=== PATIENT | female | born 1945 | race Caucasian/White ===

== ENCOUNTER 2019-10-17 01:24 | Outpatient (CLI) | payer MEDICARE, BC, SELFPAY ==
--- NOTE | 2019-10-17 13:36 | DI.RAD_ITS ---
EXAM: XR HIP PELVIS ADULT BL INDICATION: LOW BACK AND BUTTOCK PAIN,M54.5. COMPARISON: No exams were available for comparison TECHNIQUE: 2D digital imaging was performed. FINDINGS: The hip joint spaces are well maintained. There is minimal acetabular spurring. There are mild dege nerative changes of the SI joints inferiorly. IMPRESSION: Mild degenerative changes.
--- NOTE | 2019-10-17 13:39 | DI.RAD_ITS ---
EXAM: XR LUMBAR SPINE COMPLETE INDICATION: LOW BACK AND BUTTOCK PAIN,M54.5. COMPARISON: No exams were available for comparison TECHNIQUE: 2D digital imaging was performed. FINDINGS: There is a large quantity of stool, which somewhat obscures the bony detail. There is no evidence of compression fractures. There is mild narrowing of the L2-3 and L4-5 disc spaces. There are facet de generative changes greatest at L4-5. There is mild spondylolisthesis at this level secondary to face t joint degenerative changes. There is no spondylolysis. There are degenerative changes of the infe rior SI joints. IMPRESSION: Degenerative changes greatest at L4-5.
== END 2019-10-17 01:44 ==
PROVIDERS: PCP Family Medicine; Visit Provider Nurse Practitioner Family
DX: M54.5 Low back pain (principal); M53.3 Sacrococcygeal disorders, not elsewhere classified; M79.18 Myalgia, other site; M51.36 Other intervertebral disc degeneration, lumbar region; M43.16 Spondylolisthesis, lumbar region
CPT/HCPCS: 73521; 72110

== ENCOUNTER 2020-01-06 02:00 | Outpatient (CLI) | payer MEDICARE, BC, SELFPAY ==
[2020-01-06 13:51] LABS: Absolute Basophil Count 0.03 k/cumm (0.0-0.2); Absolute Eosinophil Count 0.23 k/cumm (0.0-0.7); Absolute Lymphocyte Count 1.22 k/cumm (1.2-3.4); Absolute Monocyte Count 0.39 k/cumm (0.11-0.7); Absolute Neutrophil Count 3.09 k/cumm (1.2-6.7); Basophils % 0.6; Eosinophils % 4.6; HCT 40.7 % (36.0-46.0); HGB 13.7 g/dL (12.0-15.5); Lymphocytes % 24.6; Mean Corp. HGB Concentration 33.7 g/dL (32.0-36.0); Mean Corpuscular Hemoglobin 29.5 pg (27.0-33.0); Mean Corpuscular Volume 87.7 fL (80-95); Monocytes % 7.9; Neutrophils % 62.3; Platelet Count 160 x1000/uL (130-400); RBC 4.64 m/cumm (4.00-5.20); White Blood Cell Count 4.96 k/cumm (4.4-10.8)
[2020-01-06 14:41] LABS: Anion Gap 9.2 mmol/L (3-11); BUN 14 mg/dL (7-18); CO2 26.8 mmol/L (21.0-32.0); Calcium 9.1 mg/dL (8.5-10.1); Chloride 101 mmol/L (98-107); Glucose 103 mg/dL (74-106); Potassium 3.9 mmol/L (3.5-5.1); Sodium 137 mmol/L (136-145)
[2020-01-06 15:57] LABS: Calculated LDL 125 mg/dL (<100); Cholesterol 199 mg/dL (<200); HDL Cholesterol 60 mg/dL (40-60); Triglyceride 70 mg/dL (<150)
== END 2020-01-06 02:20 ==
PROVIDERS: PCP Family Medicine; Visit Provider Family Medicine
DX: E78.5 Hyperlipidemia, unspecified (principal); R03.0 Elevated blood-pressure reading, without diagnosis of hypertension; D64.9 Anemia, unspecified; R22.30 Localized swelling, mass and lump, unspecified upper limb
CPT/HCPCS: 36415; 80048; 80061; 85025

== ENCOUNTER 2020-04-04 01:50 | Outpatient (CLI) | payer MEDICARE, BC, SELFPAY ==
--- NOTE | 2020-04-04 06:45 | DI.US_ITS ---
EXAM: US AXILLA LT CLINICAL HISTORY: swelling in left armpit for months,M79.89,LUMP LT AXILLA,N63.32 TECHNIQUE: Ultrasound left axilla performed using standard protocol. COMPARISON: MG SCREENING KINJAL MAMMO W/CAD DIGI from 01/27/2012 FINDINGS: Two lymph nodes are identified in the axilla. The largest measures 1.5 x 0.7 x 0.9 cm. The fatty hi lum is preserved.. No suspicious mass or lipoma is identified. IMPRESSION: Normal appearing axillary lymph nodes. DATA REPOSITORY:
== END 2020-04-04 02:10 ==
PROVIDERS: PCP Family Medicine; Visit Provider Family Medicine
DX: M63.8 Disorders of muscle in diseases classified elsewhere (principal); M79.89 Other specified soft tissue disorders; R22.32 Localized swelling, mass and lump, left upper limb
CPT/HCPCS: 76642

== ENCOUNTER 2020-09-03 03:33 | Outpatient (CLI) | payer MEDICARE, BC, SELFPAY ==
[2020-09-04 19:21] LABS: COVID-19 RT-PCR UVMMC Result Negative (Negative)
== END 2020-09-03 03:53 ==
PROVIDERS: PCP Family Medicine; Visit Provider Internal Medicine Cardiovascular Disease
DX: Z11.59 Encounter for screening for other viral diseases (principal); Z01.810 Encounter for preprocedural cardiovascular examination
CPT/HCPCS: U0003

== ENCOUNTER 2020-09-06 01:27 | Outpatient (CLI) | payer MEDICARE, BC, SELFPAY ==
--- NOTE | 2020-09-06 06:30 | DI.NM_ITS ---
APPROVED REPORT Exam: Exercise Treadmill Patient Location: Out-Patient Room/Bed: Stress Nurse: Gauri Roman RN, Melissa RN BMI: 20.40 Baseline Rhythm: Sinus Rhythm Indications: chest pain, QUIÑONES Medical History Medical History: gerd, borderline HTN, vertigo Cardiac Medications: None Allergies: NKDA Cardiac Risk Factors: Family hx. Previous Cardiac Procedures: None. Pretest Chest Pain Characteristics: None. Exercise History: Physically active Physical Disabilities: None. Lung Sounds: Clear to auscultation Heart Sounds: Regular Stress Test Details Test: Exercise stress testing was performed using a Logan protocol. Nuclear Acquisition: Rest Tc-99m/Stress Tc-99m 1 day Rest Isotope: Tc-99m Sestamibi. Dose: 11 Date: 09/06/20 Injection Time: 0900 Stress Isotope: Tc-99m Sestamibi. Dose: 36 Date: 09/06/20 Injection Time: 1225 HR Resting HR Supine: 63 bpm Max Heart Rate (APMHR): 143 bpm Resting HR Standin bpm Target HR (85% APMHR): 121 bpm Max HR Achieved: 150 bpm % of APMHR: 104 Recovery HR: 85 bpm HR response to stress: Normal HR response to stress BP Resting BP Supine: 154/78 mmHg Resting BP Standin/80 mmHg Max BP: 166/68 mmHg Recovery BP: 144/80 mmHg BP response to stress: Normal blood pressure response to stress. Comment: orthostatic hypotension ECG Resting ECG: Sinus Rhythm Ectopy: None. Stress ECG: Sinus Tachycardia ST Change: No significant ST segments noted. Arrhythmia: None. Recovery ECG: Sinus Rhythm Recovery ST Change: No significant ST segments noted. Recovery Arrhythmia: Rare PAC Clinical Reason for Termination: Fatigue Stress Symptoms: None. Exercise duration: 7 min45 sec Highest Stage Reached: Stage 3: 3.4 mph at 14% grade. Exercise capacity: 9.75 METs Stress ECG Conclusion 1. The resting electrocardiogram was normal 2. Patient exercised on the Logan protocol and achieved a workload of 9.75 METS 3. Normal hemodynamic response to exercise. There were no exertional symptoms to suggest angina. Th e patient achieved 100% of predicted heart rate for age 4. Electrocardiographically there was no evidence of myocardial ischemia 5. Rare atrial premature beats were seen 6. Logan treadmill score is 7, low risk Stress Test Summary STAGE Time (mins) Speed (mph) Grade (%) HR BP SYMPTOMS METS Supine 63 154/78 Standing 77 144/80 1 3 1.7 10 110 156/72 4.6 2 6 2.5 12 135 160/70 7 1 min recovery 124 166/68 3 min recovery 94 158/72 6 min recovery 85 144/80 MPI Conclusion Normal myocardial l perfusion without evidence of ischemia or prior infarction EF 74%
== END 2020-09-06 01:47 ==
PROVIDERS: PCP Family Medicine; Visit Provider Family Medicine
DX: R07.9 Chest pain, unspecified (principal); R06.09 Other forms of dyspnea; Z82.49 Family history of ischemic heart disease and other diseases of the circulatory system
CPT/HCPCS: 78452; 93016; 93018; 93017

== ENCOUNTER 2020-11-19 01:58 | Outpatient (CLI) | payer MEDICARE, BC, SELFPAY ==
[2020-11-20 13:46] LABS: COVID-19 RT-PCR UVMMC Result Negative (Negative)
== END 2020-11-19 01:59 | disposition home or self-care (01) ==
LOC: LBO 01:58
PROVIDERS: PCP Family Medicine; Visit Provider Family Medicine
DX: Z20.822 Contact with and (suspected) exposure to COVID-19 (principal)
CPT/HCPCS: U0003; U0005

== ENCOUNTER → 2022-04-09 01:49 | Outpatient (CLI) | payer MEDICARE, BC, SELFPAY ==
--- NOTE | 2022-04-09 08:00 | DI.RAD_ITS ---
Exam(s) XR ACROMIO CLAVICULAR JOINTS EXAM: XR ACROMIO CLAVICULAR JOINTS INDICATION: ac joint pain deformity,m25.519. COMPARISON: CR CHEST 2 VIEWS PA,LAT from 04/28/2014 TECHNIQUE: 2D digital imaging was performed. Two AP views were performed including both clavicles, without and with weights. FINDINGS: There is no evidence of widening of the AC joints. There are no acute fractures. There is superior bony prominence of distal right clavicle, similar to the previous exam chest x-ray. There is a small subchondral cyst, likely degenerative. There is minimal spurring. Subchondral cysts are seen in th e right humeral head a small calcification above the left humeral head. IMPRESSION: Small bony projection at the distal right clavicle. No widening of the AC joint DATA REPOSITORY: RADIATION DOSE DELIVERED:
== END ==
PROVIDERS: PCP Family Medicine; Visit Provider Nurse Practitioner
DX: M85.611 Other cyst of bone, right shoulder (principal)
CPT/HCPCS: 73050

== ENCOUNTER → 2022-10-06 13:27 | Outpatient (BNVA) | payer MEDICARE, BC, SELFPAY | PROVIDERS: PCP Family Medicine; Referring Provider Family Medicine; Visit Provider Student in an Organized Health Care Education/Training Program | DX: M65.311 Trigger thumb, right thumb (principal); G56.01 Carpal tunnel syndrome, right upper limb | CPT/HCPCS: 99203 ==

== ENCOUNTER 2022-10-28 12:37 | Day surgery (SDC) | payer MEDICARE, BC, SELFPAY ==
[2022-10-28 12:50] VITALS: BP 194/92; PULSE 80; RESP 20; TEMP 36.1; O2SAT 95
[2022-10-28 13:33] VITALS: BP 167/72; PULSE 64; RESP 20; O2SAT 97
--- NOTE | 2022-10-28 13:49 | W.ANESPRE ---
General Info Date of Service Date Performed: 10/28/22 Height: 5 ft 1 in Weight: 51.4 kg Body Mass Index (BMI): 21.4 Surgical Procedure: Operation Date: 10/28/22 15:40 Proposed Procedure Side Surgeon p Wrist ECTR Right King Whitfield MD s Trigger Thumb Release Right King Whitfield MD Meds Allergies and Home Medications Allergies Allergy/AdvReac Type Severity Reaction Status Date / Time Sulfa (Sulfonamide Allergy Intermediate Swelling/Ed Unverified 10/28/22 13:10 Antibiotics) rao Home Medication Medication Instructions Recorded lactobacillus combination no.8 3 3,000 mmu cells PO DAILY 01/07/19 billion cell capsule (Adult Probiotic) multivitamin 1 tab PO DAILY 07/04/21 clobetasol 0.05 % scalp solution 1 applic topical DAILY 10/28/22 clobetasol 0.05 % topical cream 1 applic topical PRN PRN 10/28/22 Current Visit Medications: Current Medications Generic Name Dose Route Start Last Admin Trade Name Freq PRN Reason Stop Dose Admin Ringer's Solution 1,000 mls @ 80 mls/hr 10/28/22 06:00 IV 10/28/22 23:59 INFUSION RITA Cefazolin Sodium/Dextrose 2 gm in 50 mls @ 100 mls/hr 10/28/22 06:00 Ancef Duplex IVPB 10/28/22 23:59 PREOP RITA IV Miscellaneous Supplies 1 each 10/28/22 06:00 Iv Access IV 10/28/22 23:59 DIRECTED RITA Sodium Chloride 0 ml 10/28/22 06:00 Normal Saline Flush 10 Ml Syr IV 10/28/22 23:59 PRN PRN Sodium Chloride 0 ml 10/28/22 06:00 Normal Saline 10 Ml Vial IJ 10/28/22 23:59 DIRECTED PRN Sterile Water 0 ml 10/28/22 06:00 Water,Injection,Sterile 10 Ml Vial IJ 10/28/22 23:59 DIRECTED PRN PFSH Active Problems Active Problems: Problem Status Onset Code Dog bite 01/29/18 W54.0XXA Impacted cerumen, right ear 05/17/15 H61.21 Infected dog bite 02/03/18 W54.0XXA, L08.9 Sensorineural hearing loss, bilateral 09/10/15 H90.3 Axillary lump R22.30 Low back pain M54.5 Bile reflux esophagitis K21.0 Elevated blood pressure reading without diagnosis of hypertension R03.0 Labile blood pressure R09.89 Neck pain M54.2 Myofascial muscle pain M79.18 Chest pain R07.9 Anterior epistaxis R04.0 AC joint pain M25.519 Right carpal tunnel syndrome G56.01 Trigger thumb of right hand M65.311 Medical History Medical History Bile acid esophageal reflux Borderline high blood pressure Numbness and tingling in right hand Sensorineural hearing loss (SNHL), bilateral Vertigo Medical History Comments:: Pt reports having intermittent belching accompanied by left side chest tenderness (localaized small area). Has had for years. Last EGD did not diagnose GERD. Surgical History Surgical History History of esophagogastroduodenoscopy (EGD) Hx of colonoscopy Tobacco Smoking/Tobacco Use Status: Never Passive smoking exposure: Yes Second hand exposure: Yes Alcohol Alcohol Intake: never Substance Use Substance use: Never Substance use type: does not use Vital Signs and Lab Results Vital Signs Most Recent Vital Signs in EMR: Most Recent Vital Signs Temp Pulse Resp BP Pulse Ox 36.1 C L 64 20 167/72 H 97 10/28/22 12:50 10/28/22 13:33 10/28/22 13:33 10/28/22 13:33 10/28/22 13:33 Lab Results Blood Type / Crossmatch: No Data to Display Complete Blood Count: No Data to Display Complete Metabolic Panel: No Data to Display Liver Function Panel: No Data to Display Coagulation Panel: No Data to Display Cardiac Panel: No Data to Display Arterial Blood Gas: No Data to Display Venous Blood Gas: No Data to Display Pancreas Panel: No Data to Display Thyroid Panel: No Data to Display Infectious Disease: No Data to Display Blood Cultures: No Data to Display Toxicology Panel: No Data to Display Anesthesia Assessment and Plan Anesthesia History Personal History: No History of Anesthesia Complications Family History: No Family History of Anesthesia Complications Exercise Tolerance Exercise Tolerance: Metabolic Equivalents>4 Pertinent Negatives Pertinent Negatives: No Major Cardiovascular Symptoms or Complaints, No Major Pulmonary Symptoms or Complaints and No History of CVA/TIA Cardiac & Pulmonary Exam Cardiac Exam: Normal S1/S2 Heart Sounds Pulmonary Exam: Clear Bilateral Breath Sounds Implantable Cardiac Device Does patient have a Pacemaker or an ICD?: No Airway Exam Known Difficult Airway: No Mallampati Class: 2 Mouth Opening: Normal (> 3cm) Thyromental Distance: Greater than 3 cm Neck Range of Motion: Full ROM Neck Circumference: Normal Teeth Condition: Normal Dentition ASA Classification ASA Score: ASA 2 Emergency Case?: No NPO Status NPO Status: NPO Clears >2 hours, Solids >8 hours Anesthesia Plan Resuscitation Status: Full Code Anesthesia Technique: Primary Nerve Block Airway Planned: Natural Airway Monitors Used: Standard Monitors Preoperative Comments:: daily symptoms of GERD
[2022-10-28] MEDS: Lactated Ringers 1,000 ML 80 ML IV (13:50)
--- NOTE | 2022-10-28 13:52 | W.PM.DSUDISC ---
Date of service: 10/28/22 Time of Service: 13:54 Discharge Plan Disposition Patient Disposition: Home Condition: Good Discharge Details Reason For Visit: Right carpal tunnel syndrome and trigger thumb Attending Provider: King Whitfield Primary Care Provider: Israel Abel Home Meds and New Rx's Prescriptions: Continued Adult Probiotic 3 billion cell capsule 3,000 mmu cells PO DAILY multivitamin Tablet 1 tab PO DAILY clobetasol 0.05 % cream 1 applic TOPICAL PRN PRN Patient Comments: APPLY TO ARMS TWO TIMES A DAY clobetasol 0.05 % solution 1 applic TOPICAL DAILY Patient Comments: APPLY TOPICALLY TO AREAS OF ITCHING AND SCALING NIGHTLY OR EVERY OTHER NIGHT NEEDED Discharge Instructions Stand Alone Forms: Roseann Gudino. Tunnel Release, Roseann Madden Finger Release Activity:: Elevate Remove Dressings/Wound Care:: 72 hours Shower/Bathe:: 72 hours Diet:: As Tolerated Discharge Orders Discharge Orders: Discharge Order (Routine); Ordered 10/28/22 Ordered By: Breonna Prieto
[2022-10-28 13:56] VITALS: BMI 21.4
--- NOTE | 2022-10-28 14:08 | HPE_ITS ---
Assessment and Plan Assessment and plan (1) Trigger thumb of right hand: Status: Acute (2) Right carpal tunnel syndrome: Status: Acute Assessment and plan: Rizwana is a 77-year-old who has carpal tunnel syndrome on the right side along with a trigger thumb on the right side. He is here today for surgical release of both. I discussed the risk of the procedure to include bleeding, infection, pain, stiffness, damage nerves and vessels, damage to muscle tendons, recurrence or persistent symptoms and persistent numbness. Despite these risk, she elects to proceed. All of her questions were answered History of Present Illness History of Present Illness Chief Complaint: Right Carpal Tunnel Syndrome and Right Trigger Thumb Narrative: Mariela is a 77-year-old has carpal tunnel syndrome of the right hand along with a trigger thumb. Please the previous office note for complete detailed history. She is here today for carpal tunnel release and trigger thumb release. She has had no active medical issues. No new sick contacts. No chest pain or shortness of breath. Review of Systems All systems reviewed & are unremarkable except as noted in HPI and below PFSH All Active Problems Dog bite (Acute 01/29/18) Impacted cerumen, right ear (Acute 05/17/15) Infected dog bite (Acute 02/03/18) Sensorineural hearing loss, bilateral (Acute 05/17/15) Axillary lump (Acute) Low back pain (Acute) Bile reflux esophagitis (Acute) Elevated blood pressure reading without diagnosis of hypertension (Acute) Labile blood pressure (Acute) Neck pain (Acute) Myofascial muscle pain (Acute) Chest pain (Acute) Anterior epistaxis (Acute) AC joint pain (Acute) Right carpal tunnel syndrome (Acute) Trigger thumb of right hand (Acute) Medical History Bile acid esophageal reflux Borderline high blood pressure Numbness and tingling in right hand Sensorineural hearing loss (SNHL), bilateral Vertigo Surgical History History of esophagogastroduodenoscopy (EGD) Hx of colonoscopy Family History Mother , 95 Essential hypertension Colon cancer Father , 67 Cancer Son No problems noted. Daughter No problems noted. Daughter No problems noted. Maternal Grandfather No problems noted. Paternal Grandfather No problems noted. Maternal Grandmother No problems noted. Paternal Grandmother , 90+ No problems noted. Social History Smoking/Tobacco Use Status: Never Second Hand Exposure: Yes Smoking risk assessment performed?: Yes Alcohol Intake: never Drug use: Never Substance use type: does not use Caregiver/Support person: No Household members: other Details: Grandchild Communication Needs: Hard of Hearing Do you need help understanding health information?: Never Pets and animals: Yes Pets and animals: cat(s) Current gender identity: decline to answer What is your relationship status?: How often do you talk on the phone with friends or family?: three or more times per week How often do you get together with friends or relatives?: three or more times per week How often do you attend christianity or zoroastrianism services?: 4 or more times per year Do you belong to any clubs or organized social groups?: yes Panel score (0-1 are the most socially isolated patients): 3 What type of physical activity do you participate in: walking and other Details: Hiking,Gardening Duration: 45-60 minutes/day Frequency: decline to answer Lucila/Bahai: Buddhist Special lucila needs: No Seatbelt use: always Drive 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 Do you feel safe at home: Yes Do you feel safe in your relationship?: Yes Additional Social history: lives alone Meds Allergies and Home Medications Allergies Allergy/AdvReac Type Severity Reaction Status Date / Time Sulfa (Sulfonamide Allergy Intermediate Swelling/Ed Unverified 10/28/22 13:10 Antibiotics) rao Home Medications Medication Instructions Recorded Confirmed Type lactobacillus combination no.8 3 3,000 mmu cells PO DAILY 01/07/19 10/28/22 History billion cell capsule (Adult Probiotic) multivitamin 1 tab PO DAILY 07/04/21 10/28/22 History clobetasol 0.05 % scalp solution 1 applic topical DAILY 10/28/22 10/28/22 History clobetasol 0.05 % topical cream 1 applic topical PRN PRN 10/28/22 10/28/22 History Exam Resp Effort & Inspection: normal respiratory effort Auscultation: clear to auscultation bilaterally Cardio Rate: regular rate Rhythm: regular rhythm Results Last Vital Signs Temp 36.1 C L 10/28/22 12:50 Pulse 64 10/28/22 13:33 Resp 20 10/28/22 13:33 BP 167/72 H 10/28/22 13:33 Pulse Ox 97 10/28/22 13:33
[2022-10-28] MEDS: ceFAZolin 2 GM/50 ML BAG IVPB (14:24)
--- NOTE | 2022-10-28 14:38 | W.ANESNERVE ---
Nerve Block Single Injection Procedure Date and Time Date Performed: 10/28/22 Procedure Start: 14:13 Location Where Procedure Performed Procedure Location: Operating Room Procedure Stop: 14:18 Reason Performed: Other Requesting Provider: King Whitfield Requesting Provider (not listed above): Primary Nerve Block Anesthetic Timeout Performed Timeout Performed: Yes Monitoring Used ECG, Blood Pressure, SpO2, ETCO2 and See EMR for corresponding vital signs Sterility Sterility: Hand Hygiene, Surgical Cap, Surgical Mask, Sterile Gloves and Chlorhexidine Sedation Given During Procedure Sedation Given (Indicate Dose Given): Versed IV Dose:: 1mg Patient Mental Status Patient Mental Status: Awake Nerve Block 1st Nerve Block: Laterality: Right Block Type: Median Ultrasound Image Saved?: Yes Needle / Catheter Used: Other (25g) Local Anesthetic Bolus (Indicate Dose Given): Lidocaine 2% Dose:: 5 mL Additives (Indicate Dose Given): None Ultrasound: Sterile probe cover and gel used Nerve Stimulator: Not Used Paresthesia: None Procedure Tolerated: No Complications Procedure Outcome: Successful Performed By: Aylin Yin 2nd Nerve Block: Laterality: Right Block Type: Ulnar Ultrasound Image Saved?: Yes Needle / Catheter Used: Other (25g) Local Anesthetic Bolus (Indicate Dose Given): Lidocaine 2% Dose:: 5mL Additives (Indicate Dose Given): None Ultrasound: Sterile probe cover and gel used Nerve Stimulator: Not Used Paresthesia: None Procedure Tolerated: No Complications Procedure Outcome: Successful Performed By: Aylin Yin
[2022-10-28] MEDS: Lidocaine 1% Pres-Free W/EPI 1/200,000 10 ML VIAL (14:44)
[2022-10-28 14:52] VITALS: BP 175/80; PULSE 71; RESP 16; TEMP 36.4; O2SAT 97
--- NOTE | 2022-10-28 15:10 | W.ANESPOSTOP ---
Postoperative Evaluation Date, Time and Location Date Performed: 10/28/22 Time Performed: 15:11 Patient Location: Day Surgery Unit Vital Signs Most Recent Imported Vital Signs: Most Recent Vital Signs Temp Pulse Resp BP Pulse Ox 36.4 C L 71 16 175/80 H 97 10/28/22 14:52 10/28/22 14:52 10/28/22 14:52 10/28/22 14:52 10/28/22 14:52 Pain Score Most Recent Pain Score: Most Recent Pain Score Pain Level 0 10/28/22 14:52 Assessment Mental Status: Arousable with meaningful communication Airway and Respiratory Function: Patent airway with normal (patient baseline) respiratory exam Cardiovascular Function: Hemodynamically Stable Hydration Status: Adequately Hydrated Nausea & Vomiting: No Nausea or Vomiting Pain: Pt. Denies Any Pain Peripheral Nerve Block: Regional nerve block not resolved at time of post operative discharge
--- NOTE | 2022-10-28 15:14 | W.PM.OP ---
Date of service: 10/28/22 Time of Service: 15:00 Operative Note Operative Note DATE OF PROCEDURE: 10/28/22 PRE-OP DIAGNOSIS: Right Carpal Tunnel Syndrome and Right Trigger Thumb POST-OP DIAGNOSIS: same PROCEDURE: Right Endoscopic Carpal Tunnel Release and Right Trigger Thumb Release SURGEON: King Whitfield ANESTHESIA TYPE: Primary Nerve Block Refer to Anesthesia Record ESTIMATED BLOOD LOSS: 0 PATHOLOGY: none sent TOURNIQUET TIME: 10 COMPLICATIONS: None Patient was transported to: same day Patient's condition: stable Indications: I have seen Peg in clinic for symptoms of carpal tunnel syndrome. The numbness, tingling, and pain limited function. Clinical exam findings with nerve conduction tests confirmed the diagnosis of carpal tunnel syndrome. Nonoperative measures such as bracing, time, activity modifications had been tried but disability and pain persisted. I discussed carpal tunnel release with the patient. I reviewed the risks of the procedure to include, but not limited to, bleeding, infection, pain, stiffness, incomplete release, damage to nerves or vessels, persistent numbness, recurrence. Despite these risks, the patient elected to proceed. Findings: There was tightened carpal tunnel. This was dilated and released successfully with the endoscopic with increased space within the tunnel. The antebrachial fascia was released proximally freeing the median nerve at the wrist. Thre was also a tightened A1 cristobal of the thumb which was released. Procedure Description: Peg was greeted in the preoperative holding area where the correct side was identified and marked. The consent was reviewed with the patient and signed. The history and physical was updated. All questions were answered. Peg was taken back to the operating room. The patient was placed into the supine position on the operating room table with the right arm on an arm board. A median and ulnar nerve blockade was administered by anesthesia under ultrasound guidance. Then, a nonsterile tourniquet was placed high onto the arm. All bony prominences were well padded. Prophylactic antibiotics in the form of [Cefazolin] were administered. The right arm was then prepped with Chloraprep and draped in a standard fashion with stockinette and extremity drape. A timeout to confirm correct identity, side and site, procedure, allergies, anesthesia, and medical concerns was performed. The surgical site was marked in the volar wrist creases in line with the radial border of the fourth ray. This area was anesthetized with approximately 6cc of 1% Lidocaine. THe surgical site for the right thumb trigger release was also marked on the skin and the area anesthetized with 1% Lidocaine. The limb was then exsanguinated with an Esmarch. The skin was incised with a 15 blade, approximately 1cm. The skin only was cut and the deeper tissue was dissected bluntly with a tenotomy scissor, avoiding passing nerve and venous structures. The fascia was penetrated and opened bluntly. A two-prong skin hook was placed under this proximal fascial edge. A series of hamate finders were used to identify and dilate the carpal tunnel. Synovial elevator was used to free synovial attachments to the underside of the transverse carpal ligament. My thumb was kept in the palm to nishant the distal extent of the carpal tunnel and correctly position the hand. The [employer]aire endoscope was inserted without difficulty and without resistance. Excellent visualization showed horizontally running fibers of the transverse carpal ligament (TCL). The distal extent of the TCL was visualized and the end of the scope palpated with the thumb. The blade was elevated and withdrawn from distal to proximal. The TCL was split into two flaps. The endoscope was reinserted to confirm complete release and any remnant ligament was incised. The scope was withdrawn and the proximal aspect of the carpal tunnel was grossly inspected and appeared release with the median nerve visible. The antebrachial fascia at the level of the wrist was then freed from the overlying skin and then the underlying median nerve with blunt dissection. This was transected longitudinally for about 3cm proximal to the wrist incision. The wound was then irrigated with easy flow of irrigant distally and proximally. The incision was closed with a single 4-0 Nylon suture. Turning attention to the trigger thumb, a longitudinal incision was made through skin only, approximately 1cm.? The deep tissues were dissected bluntly.? Once the A1 cristobal and flexor tendons were identified the soft tissue including neurovascular structures were retracted medially and laterally.? There were no crossing structures over the A1 cristobal.? ? The proximal edge of the cristobal was identified and the cristobal was incised with tenotomy scissors.? There was a release of the tendons once this was fully released.? The tendons were then removed from the wound and inspected.? Excess synovium was resected.? The tendons were then returned. The hand was then once more inspected for any A0 cristobal or area of possible constriction.? The wound was then irrigated and the skin was closed with a 4-0 Nylon.? The wounds were dressed with Xeroform, Gauze, Kerlix and Drake. The tourniquet was deflated with the initial dressing and held with some pressure. Blood flow returned easily to all digits with capillary refill less than 2 seconds. The patient tolerated the procedure well and was returned to the Same Day Surgery area in a stable condition suffering no known complication.
[2022-10-28 15:15] VITALS: BP 183/91; PULSE 68; RESP 16; TEMP 36.5; O2SAT 97
== END 2022-10-28 16:05 | disposition home or self-care (01) ==
PROVIDERS: PCP Family Medicine; Visit Provider Student in an Organized Health Care Education/Training Program
PROC: 01N54ZZ Release Median Nerve, Percutaneous Endoscopic Approach (ICD-10-PCS; CPT 29848; principal; 2022-10-28 15:30)
DX: M65.311 Trigger thumb, right thumb (principal); G56.01 Carpal tunnel syndrome, right upper limb
CPT/HCPCS: 26055; 29848; 76942; J0690; J1100; J2250; J2405; J2704

== ENCOUNTER → 2022-11-07 09:27 | Outpatient (BNVA) | payer MEDICARE, BC, SELFPAY | PROVIDERS: PCP Family Medicine; Referring Provider Family Medicine; Visit Provider Physician Assistant | DX: Z47.89 Encounter for other orthopedic aftercare (principal); R20.0 Anesthesia of skin ==

== ENCOUNTER 2024-04-26 02:02 | Outpatient (CLI) | payer MEDICARE, BC, SELFPAY ==
[2024-04-26 10:28] LABS: Calculated LDL 102 mg/dL (<100); Cholesterol 187 mg/dL (<200); Glucose 98 mg/dL (74-106); HDL Cholesterol 74 mg/dL (40-60); Triglyceride 59 mg/dL (<150)
== END 2024-04-26 02:03 | disposition home or self-care (01) ==
LOC: LBO 02:02
PROVIDERS: PCP Family Medicine; Visit Provider Family Medicine
DX: E78.5 Hyperlipidemia, unspecified (principal); R73.9 Hyperglycemia, unspecified
CPT/HCPCS: 36415; 80061; 82947

== ENCOUNTER 2024-12-06 11:36 | Outpatient (CLI) | payer MEDICARE, BC, SELFPAY ==
--- NOTE | 2024-12-06 11:30 | RT.EKG_ITS ---
APPROVED REPORT Exam: Resting ECG Reason for Exam: Rapid heart rate Patient Location: O HR:53 bpm ECG Measurements Heart Rate 53 AXIS [place] 153 P 75 QRSd 85 QRS 29 QT 422 T 40 QTc 397 Conclusion Sinus rhythm...normal P axis, V-rate 50- 99 Probable left atrial enlargement...P >50mS, <-0.10mV V1 Otherwise normal ECG
== END 2024-12-06 11:37 | disposition home or self-care (01) ==
LOC: DI.CM 11:37
PROVIDERS: PCP Family Medicine; Visit Provider Family Medicine
DX: R07.9 Chest pain, unspecified (principal)
CPT/HCPCS: 93010

== ENCOUNTER 2024-12-19 03:07 | Outpatient (CLI) | payer MEDICARE, BC, SELFPAY ==
[2024-12-19 11:27] LABS: HCT 39.7 % (36.0-46.0); HGB 13.3 g/dL (11.2-15.7); MCH 29.2 pg (27.0-33.0); MCHC 33.5 % (32.0-36.0); MCV 87 fL (80-95); MPV 9.7 fL (8.0-11.0); Platelet Count 186 10^3/uL (130-400); RBC 4.56 10^6/uL (3.93-5.22); RDW 11.7 % (11.7-14.6); RDW-SD 37.5 fL; WBC 4.96 10^3/uL (4.4-10.8)
[2024-12-19 12:03] LABS: Anion Gap 8.6 mmol/L (3-11); BUN 13 mg/dL (7-18); CO2 26.4 mmol/L (21.0-32.0); CREATININE 0.7 mg/dL (0.55-1.02); Calcium 9.2 mg/dL (8.5-10.1); Chloride 101 mmol/L (98-107); Estimated GFR 86.83 (mL/min/1.73m2); Glucose 94 mg/dL (74-106); Potassium 4.1 mmol/L (3.5-5.1); Sodium 136 mmol/L (136-145)
== END 2024-12-19 03:08 | disposition home or self-care (01) ==
LOC: LBO 03:07
PROVIDERS: PCP Family Medicine; Visit Provider Family Medicine
DX: R53.83 Other fatigue (principal); E87.1 Hypo-osmolality and hyponatremia
CPT/HCPCS: 36415; 80048; 85027

== ENCOUNTER 2025-03-08 12:29 | Outpatient (CLI) | payer MEDICARE, BC, SELFPAY ==
--- NOTE | 2025-03-08 11:11 | DI.RAD_ITS ---
Exam(s) RF BARIUM SWALLOW EXAM: RF BARIUM SWALLOW CLINICAL HISTORY: food getting stuck,dysphagia,r13.10 TECHNIQUE: 2D and realtime digital imaging was performed. CONTRAST MATERIAL: Thick and thin barium and barium tablet were administered. COMPARISON: CR CHEST 2 VIEWS PA,LAT from 04/28/2014 FINDINGS: The PA and lateral chest films show normal heart size. There is linear scarring at the lung bases. The lateral marketing technology specialist view of the neck is unremarkable shows degenerative changes at C5-6 and C6-7. Esophagus: The patient swallowed barium without difficulty. Noevidence for mucosal erosions. Nofold thickening. No mass is visible. Nostricture. Motility: There is a normal primary stripping wave. No tertiary contractions were noted. There is a small sliding hiatal hernia. There was mild gastroesophageal reflux was observed when the patient was supine. Visualized portions of the stomach and duodenum appear normal. IMPRESSION: Small sliding hiatal hernia and gastroesophageal reflux. RADIATION DOSE DELIVERED: Ka,r=15.4 mGy
[2025-03-08] MEDS: Barium Sulfate 98% W/W 140 ML BTL PO (11:14)
[2025-03-08] MEDS: Barium Sulfate 60% W/V 355 ML BTL PO (11:15)
[2025-03-08] MEDS: Simethicone/Sod Bicarb/Cit Ac, 4 gram PACKET 1 PACKET PO (11:16)
[2025-03-08] MEDS: Barium Sulfate 700 MG TAB PO (11:16)
== END 2025-03-08 12:49 ==
PROVIDERS: PCP Family Medicine; Visit Provider Family Medicine
DX: K44.9 Diaphragmatic hernia without obstruction or gangrene (principal)
CPT/HCPCS: 74221; J3490